=== PATIENT | female | born 1975 | race African-American/Black ===

== ENCOUNTER 2016-10-02 18:23 | Emergency (ER) | payer OTHER ==
[~2016-10-02] VITALS: Ht 167.6 cm; Wt 100.0 kg
[~2016-10-02 18:23] MED LIST: DICL50 PO
[2016-10-02 18:25] VITALS: BP 183/89; PULSE 60; RESP 20; TEMP 98.1; O2SAT 99
[2016-10-02] MEDS ORDERED: ERGO1CAP10 PO (19:36)
[2016-10-02] MEDS ORDERED: AMLO5TAB2 PO (19:36)
--- NOTE | 2016-10-02 19:48 | PD ---
HPI Chief Complaint: ENT Complaint Time Seen by Provider: 19:30 Travel History International Travel<30 days: No Contact w/Intl Traveler<30days: No Traveled to known affect area: No History of Present Illness HPI 41-year-old female presents for evaluation. She reports over the past week or 2 she has had some soreness at the base of her neck. She palpated the area was concerned that she may have a mass in the skin. The area is worse with palpation. She is also had a sore throat. It is a burning sensation in her throat with no alleviating factors. She denies any cough or congestion, fevers or chills. No recent travel. She has no other complaints at this time. [facility] Past Medical History Diminished Hearing: No ?: Not Past Surgical History Section: Yes Gynecologic Surgery: Yes (ABLATION) Social History Alcohol Use: No Tobacco Use: No Substance Use: No Allergies-Medications (Allergen,Severity, Reaction): Coded Allergies: No Known Allergies (Verified , 10/02/16) Reported Meds & Prescriptions Reported Meds & Active Scripts Active Reported Vitamin D (Ergocalciferol) 50,000 Unit Cap 50,000 Units PO Q7D Amlodipine (Amlodipine Besylate) 5 Mg Tab 5 Mg PO DAILY Review of Systems Except as stated in HPI: all other systems reviewed are Neg Physical Exam Narrative GENERAL: Well-developed well-nourished female in no acute distress SKIN: Warm and dry. There is some mild hyperpigmentation in the posterior crease of the neck. There is no erythema or induration. No palpable masses or abnormalities. HEAD: Atraumatic. Normocephalic. EYES: Pupils equal and round. No scleral icterus. No injection or drainage. ENT: No nasal bleeding or discharge. Mucous membranes pink and moist. NECK: Trachea midline. No JVD. CARDIOVASCULAR: Regular rate and rhythm. No murmur appreciated. RESPIRATORY: No accessory muscle use. Clear to auscultation. Breath sounds equal bilaterally. GASTROINTESTINAL: Abdomen soft, non-tender, nondistended. MUSCULOSKELETAL: No obvious deformities. Skin as noted above. Full range of motion of the neck. NEUROLOGICAL: Awake and alert. No obvious cranial nerve deficits. Motor grossly within normal limits. Normal speech. Data Data Last Documented VS Vital Signs Date Time Temp Pulse Resp B/P Pulse Ox O2 Delivery O2 Flow Rate FiO2 10/02/16 18:25 98.1 60 20 183/89 99 Room Air Orders Group A Rapid Strep Screen (10/02/16 19:19) Blood Glucose (10/02/16 19:54) Strep Culture (Group A) (10/02/16 19:30) MDM Medical Decision Making Medical Screen Exam Complete: Yes Emergency Medical Condition: Yes Medical Record Reviewed: Yes Differential Diagnosis Muscle strain, acanthosis nigricans, cyst, abscess, cellulitis, lipoma, pharyngitis, lymphadenitis Narrative Course Physical examination is quite benign. She does have mild hyperpigmentation in the posterior crease of the neck. She has no history of acathosis nigricans, diabetes and she denies any polyuria/polydipsia/polyphagia, weight loss. Random glucose level was 83. Rapid strep screen was performed and it was unremarkable. Physical examination is quite benign and I suspect her pain is muscular in etiology in the back of her neck. She has no meningeal signs. No palpable masses or lymph nodes. Suspect a viral pharyngitis. She is stable for discharge. Diagnosis Primary Impression: Pharyngitis Qualified Code: J02.9 - Pharyngitis, unspecified etiology Additional Instructions: Stay well hydrated well-nourished. Take Tylenol or Motrin for discomfort. Follow up closely with primary care physician. Return for any emergent medical conditions. Med/Other Pt SpecificInfo: No Change to Meds Disposition: 01 DISCHARGE HOME Condition: Stable Jose Juan Harris Oct 02, 2016 19:48
[2016-10-02 20:45] VITALS: BP 176/72; TEMP 99.1
== END 2016-10-02 20:49 | disposition home or self-care (01) ==
LOC: NEPB 18:23
DX: J02.9 Acute pharyngitis, unspecified (principal)
CPT/HCPCS: 87081; 87880; 99283

== ENCOUNTER 2016-10-08 22:28 | Observation (INO) | payer OTHER ==
[~2016-10-08] VITALS: Ht 165.1 cm; Wt 95.0 kg
[~2016-10-08 22:28] MED LIST changes: +AMLO5TAB2 PO; -DICL50 PO; +ERGO1CAP10 PO
[2016-10-08 22:29] VITALS: BP 194/91; PULSE 70; RESP 16; TEMP 98; O2SAT 98
[2016-10-09] VITALS (11 sets, daily range): BP systolic 112–140; BP diastolic 66–94; PULSE 59–81; RESP 16–20; TEMP 97.4–97.9; O2SAT 94–99
[2016-10-09] MEDS ORDERED: NITROGLYCERIN 0.4 MG SL 25 TABS/BTL SL ONE (02:00)
[2016-10-09] MEDS ORDERED: ASPIRIN 81 MG CHEW TAB PO ONE (02:00)
[2016-10-09] MEDS ORDERED: SODIUM CHLORIDE 0.9% FLUSH 5 ML FLUSH IVF PRN ×2 (02:00→04:15)
--- NOTE | 2016-10-09 02:44 | RADRPT ---
EXAM DATE/TIME: 10/09/2016 02:11 [facility] COMPARISON: No previous studies available for comparison. INDICATIONS : Chest pain. MEDICAL HISTORY : None. SURGICAL HISTORY : None. ENCOUNTER: Initial ACUITY: 1 day PAIN SCORE: 3/10 LOCATION: Bilateral chest FINDINGS: A single view of the chest demonstrates the lungs to be symmetrically aerated without evidence of mas s, infiltrate or effusion. The cardiomediastinal contours are unremarkable. Osseous structures are intact. CONCLUSION: No evidence of acute cardiopulmonary disease. Nguyễn Black MD on October 09, 2016 at 2:42 Board Certified Radiologist. This report was verified electronically.
--- NOTE | 2016-10-09 02:59 | PD ---
HPI Chief Complaint: Cardiac Complaint Time Seen by Provider: 01:50 Travel History International Travel<30 days: No Contact w/Intl Traveler<30days: No Traveled to known affect area: No History of Present Illness HPI The patient is a 41 year old female who presents to the [facility] emergency department with a history of headache along the right side of her head that she reports has been ongoing for the last 6 days. The only time that the headache goes away is when she takes pain medication or sleeps. The patient reports that the pain as a throbbing sensation. She reports that she last checked her blood pressure 2 days ago and it was normal at a local pharmacy. The patient reports that one hour before coming back to the emergency department she also began to have chest pain in the left side of her chest. She reports that this resolved on its own. She reports that the pain in her chest was a throbbing sensation. She denies having any radiation of the chest pain. She denies having any shortness of breath. She denies having any diaphoresis, nausea, vomiting, or diarrhea. The patient denies any history of hyperlipidemia, diabetes mellitus, tobacco use. The patient denies any family history of cardiac disease. She denies any lower extremity edema, calf pain, or erythema. The patient denies any recent history of fevers, cough, congestion , neck pain, shortness of breath, abdominal pain, vomiting, diarrhea, urinary symptoms, or neurologic symptoms. LMP: history of an ablation [facility] Past Medical History Narrative Medical The patient's past medical history is significant dysmenorrhea status post endometrial ablation, history of hypertension. Diminished Hearing: No Hypertension: Yes Tetanus Vaccination: Unknown Influenza Vaccination: Yes ?: Not LMP: ABLATION : 5 Para: 4 : 1 Past Surgical History Narrative Surgical The patient's past surgical history is significant for an endometrial ablation. Section: Yes Gynecologic Surgery: Yes (ABLATION) Social History Alcohol Use: No Tobacco Use: No Substance Use: No Allergies-Medications (Allergen,Severity, Reaction): Coded Allergies: No Known Allergies (Verified , 10/09/16) Reported Meds & Prescriptions Reported Meds & Active Scripts Active Reported Vitamin D (Ergocalciferol) 50,000 Unit Cap 50,000 Units PO Q7D Amlodipine (Amlodipine Besylate) 5 Mg Tab 5 Mg PO DAILY Review of Systems Except as stated in HPI: all other systems reviewed are Neg General / Constitutional: No: Fever Eyes: No: Visual changes HENT: Positive: Headaches, No: Rhinorrhea, Congestion, Neck Pain Cardiovascular: Positive: Chest Pain or Discomfort Respiratory: No: Cough, Shortness of Breath Gastrointestinal: No: Abdominal Pain Genitourinary: No: Dysuria Musculoskeletal: No: Pain Skin: No Rash Neurologic: Positive: Headache, No: Weakness, Focal Abnormalities, Change in Mentation, Slurred Speech, Sensory Disturbance Psychiatric: No: Depression Endocrine: No: Polydipsia Hematologic/Lymphatic: No: Easy Bruising Physical Exam Narrative General: The patient is a well-developed well-nourished female in no acute distress Head and Neck exam: Head is normocephalic atraumatic. No scalp tenderness on palpation. Eyes: EOMI, pupils are equal round and reactive to light. Nose: Midline septum with pink mucous membranes Mouth: Dentition unremarkable. Moist mucus membranes. Posterior oropharynx is not erythematous. No tonsillar hypertrophy. Uvula midline. Airway patent. Neck: No palpable lymphadenopathy. No nuchal rigidity. No thyromegaly. Cardiovascular: Regular rate and rhythm without murmurs, gallops, or rubs. Lungs: Clear to auscultation bilaterally. No wheezes, rhonchi, or rales. Abdomen: Soft, without tenderness to palpation in all 4 quadrants of the abdomen. No guarding, rebound, or rigidity. Normal bowel sounds are audible. Extremities: No clubbing, cyanosis, or edema. 2+ pulses in all 4 extremities. No calf tenderness on palpation. Back: No spinous process tenderness to palpation. No costovertebral angle tenderness to palpation. Neurologic Exam: Cranial nerves 2-12 were intact on exam. Strength is 5/5 in all 4 extremities. No sensory deficits noted. Skin Exam: No rash noted. Intact skin that is warm and dry. Data Data Last Documented VS Vital Signs Date Time Temp Pulse Resp B/P Pulse Ox O2 Delivery O2 Flow Rate FiO2 10/09/16 02:53 98 Room Air 10/09/16 02:50 67 16 140/94 10/08/16 22:29 98.0 Orders Electrocardiogram (10/08/16 23:11) B-Type Natriuretic Peptide (10/09/16 01:50) Ckmb (Isoenzyme) Profile (10/09/16 01:50) Complete Blood Count With Diff (10/09/16 01:50) Comprehensive Metabolic Panel (10/09/16 01:50) Magnesium (Mg) (10/09/16 01:50) Prothrombin Time / Inr (Pt) (10/09/16 01:50) Act Partial Throm Time (Ptt) (10/09/16 01:50) Troponin I (10/09/16 01:50) Lipase (10/09/16 01:50) Chest, Single Ap (10/09/16 01:50) Ecg Monitoring (10/09/16 01:50) Bilateral Bp Monitoring (10/09/16 01:50) Iv Access Insert/Monitor (10/09/16 01:50) Oximetry (10/09/16 01:50) Oxygen Administration (10/09/16 01:50) Aspirin Chew (Aspirin Chew) (10/09/16 02:00) Sodium Chloride 0.9% Flush (Ns Flush) (10/09/16 02:00) Nitroglycerin Sl (Nitrostat Sl) (10/09/16 02:00) Ed Urine Pregnancytest Poc (10/09/16 01:50) Ct Brain W/O Iv Contrast(Rout) (10/09/16 02:05) Ketorolac Inj (Toradol Inj) (10/09/16 03:30) CKMB (10/09/16 02:50) CKMB% (10/09/16 02:50) Place In Observation (10/09/16 04:10) Activity Bed Rest With Brp (10/09/16 04:10) Vital Signs (Adult) Q4H (10/09/16 04:10) Cardiac Rhythm .As Directed (10/09/16 04:10) ^ Notify Dr: Other .PRN (10/09/16 04:10) ^ Notify Dr. Parameters (10/09/16 04:10) Resp Oxygen Nasal Cannula (10/09/16 ) Diet Npo (10/09/16 Breakfast) Ckmb (Isoenzyme) Profile (10/09/16 05:50) Ckmb (Isoenzyme) Profile (10/09/16 08:50) Troponin I (10/09/16 05:50) Troponin I (10/09/16 08:50) Electrocardiogram (10/09/16 05:50) Electrocardiogram (10/09/16 08:50) ^ Obtain (10/09/16 04:10) Sodium Chloride 0.9% Flush (Ns Flush) (10/09/16 04:15) Sodium Chloride 0.9% Flush (Ns Flush) (10/09/16 09:00) Acetaminophen (Tylenol) (10/09/16 04:15) Aspirin (Aspirin) (10/09/16 09:00) Chief Cruiser / Telemetry ULICES.Q8H (10/09/16 04:10) Admit Order (Ed Use Only) (10/09/16 04:10) Labs Laboratory Tests Test 10/09/16 02:50 White Blood Count 11.0 TH/MM3 Red Blood Count 4.01 MIL/MM3 Hemoglobin 11.2 GM/DL Hematocrit 34.1 % Mean Corpuscular Volume 85.0 FL Mean Corpuscular Hemoglobin 27.9 PG Mean Corpuscular Hemoglobin 32.8 % Concent Red Cell Distribution Width 14.1 % Platelet Count 355 TH/MM3 Mean Platelet Volume 9.0 FL Neutrophils (%) (Auto) 58.9 % Lymphocytes (%) (Auto) 34.2 % Monocytes (%) (Auto) 4.9 % Eosinophils (%) (Auto) 1.1 % Basophils (%) (Auto) 0.9 % Neutrophils # (Auto) 6.5 TH/MM3 Lymphocytes # (Auto) 3.8 TH/MM3 Monocytes # (Auto) 0.5 TH/MM3 Eosinophils # (Auto) 0.1 TH/MM3 Basophils # (Auto) 0.1 TH/MM3 CBC Comment DIFF FINAL Differential Comment Prothrombin Time 10.8 SEC Prothromb Time International 1.0 RATIO Ratio Activated Partial 30.1 SEC Thromboplast Time Sodium Level 140 MEQ/L Potassium Level 3.1 MEQ/L Chloride Level 105 MEQ/L Carbon Dioxide Level 28.1 MEQ/L Anion Gap 7 MEQ/L Blood Urea Nitrogen 15 MG/DL Creatinine 1.02 MG/DL Estimat Glomerular Filtration 73 ML/MIN Rate Random Glucose 85 MG/DL Calcium Level 8.5 MG/DL Magnesium Level 1.9 MG/DL Total Bilirubin 0.2 MG/DL Aspartate Amino Transf 11 U/L (AST/SGOT) Alanine Aminotransferase 13 U/L (ALT/SGPT) Alkaline Phosphatase 88 U/L Total Creatine Kinase 139 U/L Creatine Kinase MB LESS THAN 0.5 NG/ML Troponin I LESS THAN 0.02 NG/ML B-Type Natriuretic Peptide 14 PG/ML Total Protein 7.4 GM/DL Albumin 3.4 GM/DL Lipase 126 U/L MDM Medical Decision Making Medical Screen Exam Complete: Yes Emergency Medical Condition: Yes Medical Record Reviewed: Yes Interpretation(s) Last Impressions Head CT 10/09/16204 Signed Impressions: Service Date/Time: Sunday, October 09, 2016 02:59 - CONCLUSION: Negative noncontrast head CT. Nguyễn Black MD Chest X-Ray 10/09/16149 Signed Impressions: Service Date/Time: Sunday, October 09, 2016 02:11 - CONCLUSION: No evidence of acute cardiopulmonary disease. Nguyễn Black MD Differential Diagnosis Hypertension induced headache and chest pain, versus tension headache, versus migraine headache, versus viral syndrome Narrative Course During the course of the patients emergency department visit, the patients history, examination, and differential diagnosis were reviewed with the patient. The patient had IV access obtained and blood work sent for analysis. The patient was placed on a monitor technician with oximetry and blood pressure monitoring. An EKG was done on arrival. The patient's EKG shows a sinus bradycardia, T waves that are inverted in V1, V2, V3, V4, V5, no acute ST segment elevation. The patient was provided aspirin 162 mg by mouth 1. The patient was given Toradol 15 mg IV. The patients laboratory studies were reviewed and remarkable for a white count 11, hemoglobin 11.2, platelets 355 with a normal differential. CMP is remarkable for potassium of 3.1 which was supplemented orally, creatinine 1.02, AST 11, initial set of cardiac enzymes are negative, BNP 14, lipase 126, PT PTT unremarkable. Radiology studies were reviewed and remarkable for a chest x-ray that is unremarkable. Given the patient's symptoms of chest pain with nonspecific T-wave abnormalities and a history of hypertension, the patient will be admitted to the hospital for a rule out serial cardiac enzyme protocol on the chest pain center. The patients results were discussed with the patient, including the plan of care. I explained that further testing and/ or monitoring is indicated based on the patients history, examination, and/ or laboratory findings. Therefore, I recommended admission for additional evaluation. The patient expressed understanding and was agreeable with this plan. The patient was admitted to the hospital in stable condition and sent to a bed under the care of the chest pain center. Diagnosis Primary Impression: Chest pain, rule out acute myocardial infarction Additional Impression: Headache Qualified Code: R51 - Acute nonintractable headache, unspecified headache type Admitting Information Admitting Physician Requests: Kalyani Tracey MD Oct 09, 2016 02:59
[2016-10-09 03:01] LABS: AUTOMATED NEUTROPHIL # 6.5 TH/MM3 (1.8-7.7); BASOPHIL # 0.1 TH/MM3 (0-0.2); BASOPHIL % 0.9 % (0.0-2.0); EOSINOPHIL # 0.1 TH/MM3 (0-0.4); EOSINOPHIL % 1.1 % (0.0-4.0); HEMATOCRIT 34.1 % (35.0-46.0); HEMO FLAGS DIFF FINAL; LYMPH % 34.2 % (9.0-44.0); LYMPHOCYTE # 3.8 TH/MM3 (1.0-4.8); MEAN CORPUSCULAR HEMOGLOBIN 27.9 PG (27.0-34.0); MEAN CORPUSCULAR HGB CONC 32.8 % (32.0-36.0); MONO % 4.9 % (0.0-8.0); NEUT % 58.9 % (16.0-70.0); PLATELET COUNT 355 TH/MM3 (150-450); RED BLOOD COUNT 4.01 MIL/MM3 (4.00-5.30); RED CELL DISTRIBUTION WIDTH 14.1 % (11.6-17.2)
[2016-10-09 03:16] LABS: APTT (PATIENT) 30.1 SEC (24.3-30.1); PROTHROMBIN TIME - PATIENT 10.8 SEC (9.8-11.6)
[2016-10-09 03:26] LABS: ALT (GPT) 13 U/L (10-53); ANION GAP 7 MEQ/L (5-15); AST (GOT) 11 U/L (15-37); BICARBONATE 28.1 MEQ/L (21.0-32.0); BLOOD UREA NITROGEN 15 MG/DL (7-18); CHLORIDE 105 MEQ/L (98-107); GLOMERULAR FILTRATION RATE 73 ML/MIN (>89); MAGNESIUM 1.9 MG/DL (1.5-2.5); POTASSIUM 3.1 MEQ/L (3.5-5.1); SODIUM (NA) 140 MEQ/L (136-145)
[2016-10-09 03:30] LABS: ALKALINE PHOSPHATASE 88 U/L (45-117); CREATINE KINASE 139 U/L (26-192); TOTAL BILIRUBIN ADULT 0.2 MG/DL (0.2-1.0)
[2016-10-09] MEDS ORDERED: KETOROLAC TROMETHAMINE 30 MG/ML (IVP) VIAL IV PUSH ONE (03:30)
[2016-10-09 03:44] LABS: CKMB LESS THAN 0.5 NG/ML (0.5-3.6)
--- NOTE | 2016-10-09 03:47 | RADRPT ---
EXAM DATE/TIME: 10/09/2016 02:59 [facility] COMPARISON: CT BRAIN W/O CONTRAST, January 21, 2013, 15:45. INDICATIONS : Headaches for 6 days. RADIATION DOSE: 51.24 CTDIvol (mGy) MEDICAL HISTORY : Hypertension. SURGICAL HISTORY : None. ENCOUNTER: Initial ACUITY: 4 - 6 days PAIN SCALE: 8/10 LOCATION: cranial TECHNIQUE: Multiple contiguous axial images were obtained of the head. Using automated exposure control and adj ustment of the mA and/or kV according to patient size, radiation dose was kept as low as reasonably a chievable to obtain optimal diagnostic quality images. FINDINGS: CEREBRUM: The ventricles are normal for age. No evidence of midline shift, mass lesion, hemorrhage or acute in farction. No extra-axial fluid collections are seen. POSTERIOR FOSSA: The cerebellum and brainstem are intact. The 4th ventricle is midline. The cerebellopontine angle i s unremarkable. EXTRACRANIAL: The visualized portion of the orbits is intact. SKULL: The calvaria is intact. No evidence of skull fracture. CONCLUSION: Negative noncontrast head CT. Nguyễn Black MD on October 09, 2016 at 3:45 Board Certified Radiologist. This report was verified electronically.
[2016-10-09] MEDS ORDERED: POTASSIUM CHLORIDE 20 MEQ CONTROLLED RELEASE TAB PO ONE (05:30)
[2016-10-09] MEDS: ACETAMINOPHEN 500 MG CPLT PO PRN ×3 (05:52→20:31)
[2016-10-09 06:38] LABS: CREATINE KINASE 119 U/L (26-192)
[2016-10-09 06:50] LABS: CKMB LESS THAN 0.5 NG/ML (0.5-3.6)
[2016-10-09] MEDS: ASPIRIN 325 MG TAB PO SCH (09:18)
[2016-10-09] MEDS: SODIUM CHLORIDE 0.9% FLUSH 5 ML FLUSH IVF SCH ×2 (09:18→20:30)
[2016-10-09] MEDS: amLODIPine BESYLATE 5 MG TAB PO SCH (09:51)
[2016-10-09 10:13] LABS: CREATINE KINASE 115 U/L (26-192)
[2016-10-09 10:25] LABS: CKMB LESS THAN 0.5 NG/ML (0.5-3.6)
--- NOTE | 2016-10-09 10:41 | MH ---
cc: OMID ZEE MD DATE OF ADMISSION: 10/09/2016 DATE OF : 1975 CHIEF COMPLAINT Headache and chest pain. HISTORY OF PRESENT ILLNESS This is a 41-year-old female who presents to the ED via private vehicle. The patient states that she was coming to the emergency department for a constant headache that had been there for 6 days. It was in the back of her head. She states she has . She had no photophobia or phonophobia. No weakness in the extremities. No head injury. No seizure activity. She denies fevers or chills. She states while en route to the hospital to evaluate her headache, she developed a left-sided chest discomfort. She states it was there constantly for an hour. She describes it as a pressure and it was a 5 out of 10. She had no associated shortness of breath, nausea or diaphoresis with the symptoms. She states it remained until getting IV medicine in the ER. I reviewed her records, she was given IV Toradol. She states that helped a lot. She denies history of CAD. PAST MEDICAL HISTORY 1. Hypertension. 2. Migraines. Denies hyperlipidemia, diabetes and CAD. FAMILY HISTORY Denies family history of CAD. SOCIAL HISTORY She is a nonsmoker. Denies alcohol or illicit drugs. She is . She has four children two of which live at home. PAST SURGICAL HISTORY and uterine ablation. ALLERGIES NO KNOWN DRUG ALLERGIES. MEDICATIONS 1. Amlodipine 5 mg daily. 2. Vitamin D. REVIEW OF SYSTEMS GENERAL: Denies fevers or chills. Denies recent illnesses. HEENT: Denies headache in the back of her head. Denies earache, sore throat or difficulty swallowing. CARDIOVASCULAR: Describes the discomfort as mentioned above. Denies diaphoresis. Denies sensation of heart beating rapidly or irregularly. Denies syncope. RESPIRATORY: Denies shortness of breath or inspirational chest discomfort. Denies coughing, wheezing or hemoptysis. GI: Denies nausea, vomiting, diarrhea, abdominal pain or blood in stool. MUSCULOSKELETAL: Denies joint pain or edema. Denies calf pain or edema. NEUROVASCULAR: Denies headache or dizziness. ENDOCRINE: Denies polyuria, polydipsia. HEMATOLOGIC: Denies easy bruising. SKIN: Denies rash or itching. PHYSICAL EXAMINATION VITAL SIGNS: In the emergency department initially included a blood pressure 194/91, heart rate 70, respirations 16, pulse oximetry 98% on room air and she was afebrile. Most recent vital signs include a blood pressure 112/68, heart rate 81, respiration 19, pulse oximetry 97% on room air. GENERAL: The patient is seen in the examination room in no apparent distress. She is very pleasant. She speaks in clear and complete sentences. HEENT: Head is atraumatic and normocephalic. NECK: Neck is supple without lymphadenopathy and trachea is midline. No JVD or carotid bruits. CARDIOVASCULAR: Regular rate and rhythm without murmur, gallop or rub. RESPIRATORY: Lungs are clear to auscultation bilaterally. No wheezing, rales or rhonchi. No use of accessory muscles. There is a rather easily reproducible discomfort just left of the sternum. This is the discomfort she was having prior to getting the Toradol injection in the ER. GI: Abdomen is nontender, nondistended. Bowel sounds are normal. No guarding or rebound. No obvious pulsatile mass or bruit. No CVA tenderness. Strong femoral pulses bilaterally. MUSCULOSKELETAL: Patient moving upper and lower extremities freely. No joint tenderness or edema. No calf tenderness or edema, no Homans' sign. Strong pulses in upper and lower extremities. NEUROVASCULAR: The patient is alert and oriented. Cranial nerves II-XII grossly intact. No focal deficits and speech is clear. SKIN: No rashes. Turgor is normal. LABORATORY DATA CBC is unremarkable. Coagulation studies are unremarkable. Complete metabolic panel has a potassium decreased at 3.1, otherwise essentially unremarkable. First two sets of cardiac enzymes are normal. BNP is normal at 14. Lipase normal 26. IMAGING STUDIES Single view chest x-ray read by radiologist as no evidence of acute cardiopulmonary disease. A CT brain obtained through the ER and read by the radiologist as negative noncontrast head CT. EKGs Have sinus bradycardia with diffuse nonspecific inferior T-wave changes. There are also some lateral ST-T changes nonspecific. ASSESSMENT AND PLAN 1. Chest pain: The patient's discomfort is reproducible when palpating the chest wall. She will have serial cardiac enzymes and EKGs for ruling out purposes. She will be seen by Dr. Omid Zee of cardiology in the chest pain center. Her discomfort has improved after getting IV Toradol. stress test if so and if normal she will be discharged home with instruction to follow with local physician. 2. Cephalgia: Followup with her primary care physician. Her headache has improved. 3. Hypertension: Continue amlodipine. The patient is stable at this time. She is agreeable to this plan. Dictated by: Freeman Peterson PA-C MD SARINA Betancourt/JUJU /9:19 AM /10:38 AM
--- NOTE | 2016-10-09 15:47 | RADRPT ---
EXAM DATE/TIME: 10/09/2016 12:36 [facility] COMPARISON: No previous studies available for comparison. INDICATIONS : Left chest pain and headache. Angina DOSE: 25.4 mCi Tc99m Myoview at stress 8.6 mCi Tc99m Myoview at rest REST HEART RATE: 98 BPM TARGET HEART RATE: 153 BPM MAX HEART RATE: 158 BPM REST BLOOD PRESSURE: 130/80 mmHg MAX BLOOD PRESSURE: 150/80 mmHg EJECTION FRACTION: 59% MEDICAL HISTORY : Hypertension. SURGICAL HISTORY : section. ENCOUNTER: Initial ACUITY: 1 day PAIN SCALE: 3/10 LOCATION: Left chest TECHNIQUE: The patient underwent upright treadmill exercise in the chest pain center. Continuous ECG tracing wa s monitored during stress. Gated SPECT imaging was performed after stress, and conventional SPECT im aging was performed at rest. The examination was performed on a SPECT/CT scanner, both attenuation-c orrected and non-corrected datasets were reviewed. FINDINGS: DISTRIBUTION: The maximum perfused segment at stress is in the inferior wall. PERFUSION STUDY: Stress induced reduced perfusion is identified in the anterior wall and septum. There is significant reperfusion of these areas at rest. A fixed perfusion abnormalities identified in the lateral apical region of the left ventricle. GATED STUDY: There is intact wall motion and thickening without hypokinetic or dyskinetic segments. CONCLUSION: Stress induced reversible perfusion abnormalities involving the anterior wall and septum. Small fixed perfusion abnormalities in the lateral apical region. Well-preserved ejection fraction and wall motion. RISK CATEGORY: Intermediate (1-3% Annual Mortality Rate) Ramy Reynoso MD on October 09, 2016 at 15:43 Board Certified Radiologist. This report was verified electronically.
[2016-10-09] MEDS ORDERED: ALPRAZolam 0.25 MG TAB PO PRN (17:00)
[2016-10-10 05:57] VITALS: BP 103/54; PULSE 66; RESP 20; TEMP 97.8; O2SAT 94
[2016-10-10 06:06] VITALS: PULSE 60
[2016-10-10 08:00] VITALS: BP 109/68; PULSE 66; PULSE 73; RESP 18; TEMP 97.6; O2SAT 97
[2016-10-10 08:05] LABS: HDL CHOLESTEROL 55.5 MG/DL (40.0-60.0)
[2016-10-10] MEDS: ASPIRIN 325 MG TAB PO SCH (09:16)
[2016-10-10] MEDS: amLODIPine BESYLATE 5 MG TAB PO SCH (09:16)
[2016-10-10] MEDS: SODIUM CHLORIDE 0.9% FLUSH 5 ML FLUSH IVF SCH (09:17)
[2016-10-10] MEDS ORDERED: KETOROLAC TROMETHAMINE 30 MG/ML (IVP) VIAL IV PUSH ONE (10:00)
[2016-10-10 11:48] VITALS: BP 119/70; PULSE 64; RESP 18; TEMP 97.2; O2SAT 97
[2016-10-10 12:00] VITALS: PULSE 62
[2016-10-10] MEDS ORDERED: HEPARIN-NS/PF INJ 500 ML ONE (12:23)
[2016-10-10] MEDS ORDERED: MIDAZOLAM HCL 2 MG/2 ML VIAL ONE (12:23)
[2016-10-10] MEDS ORDERED: SODIUM CHLORIDE 0.9% FLUSH 5 ML FLUSH IVF PRN (13:00)
[2016-10-10] MEDS ORDERED: ATROPINE SULFATE 1 MG/ML VIAL IV PRN (13:00)
[2016-10-10] MEDS ORDERED: METOCLOPRAMIDE HCL 10 MG/2 ML VIAL IV PRN (13:00)
[2016-10-10] MEDS ORDERED: MISC INFORMATION XX ONE (13:00)
[2016-10-10] MEDS ORDERED: SODIUM CHLOR 0.9% 250 ML INJ 250 ML IV PRN (13:00)
[2016-10-10] MEDS ORDERED: ONDANSETRON HCL 4 MG/2 ML VIAL IV PRN (13:00)
--- NOTE | 2016-10-10 13:15 | MA ---
cc: OMID WILLAMS MD DATE 10/10/2016 PROCEDURAL STATEMENT The patient was prepped and draped in the usual fashion. A 6 sheath was inserted percutaneously into the right femoral artery. Coronary angiography was done with Bailee preformed catheters. RESULTS Aortic pressure was 116/70. LEFT VENTRICULOGRAPHY Not done. CORONARY ARTERIOGRAPHY The left main coronary artery was normal. The left anterior descending artery was normal throughout its course. The left circumflex artery and the obtuse marginal were normal throughout their course. The right coronary artery was anatomically dominant and normal throughout its course. CONCLUSIONS Normal coronary arteries. It is felt that her nuclear stress test was falsely positive and chest pain is not secondary to coronary artery disease. MD STEFFI BetancourtW/CHIOL /1:05 PM /1:13 PM
[2016-10-10] MEDS ORDERED: IOHEXOL 350 MG/ML 50 ML BTL (for Cath Lab) OTHER ONE (14:01)
--- NOTE | 2016-10-10 15:47 | EKG ---
Date Performed: 10/09/2016 Time Performed: 09:41:05 PTAGE: 41 years EKG: SINUS BRADYCARDIA NONSPECIFIC T-WAVE ABNORMALITY BORDERLINE ECG PREVIOUS TRACING : 10/09/2016 06.03 Since previous tracing, no significant change noted DOCTOR: Ned Zee Interpretating Date/Time 10/10/2016 15:45:26
--- NOTE | 2016-10-10 15:48 | EKG ---
Date Performed: 10/09/2016 Time Performed: 06:03:27 PTAGE: 41 years EKG: SINUS BRADYCARDIA MODERATE T-WAVE ABNORMALITY, CONSIDER ANTEROLATERAL ISCHEMIA ABNORMAL ECG PREVIOUS TRACING : 11/09/2011 22.16 Since previous tracing, no significant change noted DOCTOR: Ned Zee Interpretating Date/Time 10/10/2016 15:46:09
--- NOTE | 2016-10-10 15:50 | EKG ---
Date Performed: 10/08/2016 Time Performed: 23:16:30 PTAGE: 41 years EKG: SINUS BRADYCARDIA MODERATE T-WAVE ABNORMALITY, CONSIDER ANTERIOR ISCHEMIA ABNORMAL ECG NO PREVIOUS TRACING DOCTOR: Ned Zee Interpretating Date/Time 10/10/2016 15:48:22
--- NOTE | 2016-10-10 16:08 | TR ---
Date Performed: 10/09/2016 Time Performed: 14:25:24 DOCTOR: Ned Zee DRUG LIST: CLINICAL HISTORY: REASON FOR TEST: Chest pain REASON FOR ENDING: OBSERVATION: CONCLUSION: BALDO PROTOCOL NUCLEAR ETT. NO CP OR SOB.Maximum WO=049 % Max HR Achieved=86.0% Maxi mum WK=988/80 Total Exercise Time=6:00 COMMENTS: Patient exercised using the Baldo protocol. No electrocardiographic changes were seen to suggest ischemia. Hemodynamic response to exercise was normal. No significant arrhythmia was prese nt.
[2016-10-10 19:15] VITALS: O2SAT 96
[2016-10-10] MEDS ORDERED: SODIUM CHLORIDE 0.9% FLUSH 5 ML FLUSH IVF SCH (21:00)
== END 2016-10-10 14:15 | disposition home or self-care (01) ==
LOC: NEPC 22:28 → NEDA 10-09 04:13 → NEPGCP 10-09 11:43
PROVIDERS: ADMIT Internal Medicine Cardiovascular Disease; ATTEND Internal Medicine Cardiovascular Disease
DX: R07.9 Chest pain, unspecified (principal); G43.909 Migraine, unspecified, not intractable, without status migrainosus; I10 Essential (primary) hypertension
CPT/HCPCS: 70450; 71010; 78452; 80053; 80061; 82550; 82552; 83690; 83735; 83880; 84484; 84703; 85025; 85610; 85730; 93005; 93017; 93454; 96374; 99285; A9502; C1760; C1769; C1893; G0269; G0378; J1644; J1885; J2250; J3010; Q9967

== ENCOUNTER 2017-03-02 23:25 | Emergency (ER) | payer OTHER ==
[~2017-03-02] VITALS: Ht 165.1 cm; Wt 100.0 kg
[2017-03-02 23:27] VITALS: BP 180/99; PULSE 83; RESP 16; TEMP 98.6; O2SAT 100
[2017-03-03 00:40] VITALS: BP 168/100
[2017-03-03] MEDS ORDERED: DEXAMETHASONE SOD PHOS 20 MG/5 ML VIAL IM ONE (01:15)
[2017-03-03] MEDS ORDERED: ORPHENADRINE INJ 60 MG/2 ML AMP IM ONE (01:15)
[2017-03-03] MEDS ORDERED: KETOROLAC TROMETHAMINE 60 MG/2 ML (IM) VIAL IM ONE (01:15)
--- NOTE | 2017-03-03 01:29 | PD ---
HPI Chief Complaint: Back/ Neck Pain or Injury Time Seen by Provider: 01:00 Travel History International Travel<30 days: No Contact w/Intl Traveler<30days: No Traveled to known affect area: No History of Present Illness HPI Patient is a 41-year-old female presenting to emergency for evaluation of 3 days of right upper back pain. Patient states she was vacuuming when she felt her muscle pull. She also reports pain in her right heel unrelated to the back pain. She stated when she takes off her shoe is painful to walk. She reports the pain in her back as an 8 out of 10 and feeling. She denies any shortness of breath, chest pain, abdominal pain. She has been taking ibuprofen with no significant relief of symptoms. She reports that the pain in her hell has been ongoing for several days as well. [facility] Past Medical History Congestive Heart Failure: No Diabetes: No Diminished Hearing: No Hypertension: Yes ?: Not : 5 Para: 4 : 1 Past Surgical History Section: Yes Gynecologic Surgery: Yes (ABLATION) Social History Alcohol Use: No Tobacco Use: No Substance Use: No Allergies-Medications (Allergen,Severity, Reaction): Coded Allergies: No Known Allergies (Verified , 03/03/17) Reported Meds & Prescriptions Reported Meds & Active Scripts Active Prednisone 50 Mg Tab 50 Mg PO DAILY Flexeril (Cyclobenzaprine HCl) 10 Mg Tab 10 Mg PO TID PRN 10 Days Ibuprofen 800 Mg Tab 800 Mg PO Q6HR PRN Review of Systems Except as stated in HPI: all other systems reviewed are Neg Musculoskeletal: Positive: Myalgias, Cramping, Pain Physical Exam Narrative GENERAL: Well-nourished, well-developed patient. SKIN: Focused skin assessment warm/dry. HEAD: Normocephalic. EYES: No scleral icterus. No injection or drainage. NECK: Supple, trachea midline. No JVD or lymphadenopathy. CARDIOVASCULAR: Regular rate and rhythm without murmurs, gallops, or rubs. RESPIRATORY: Breath sounds equal bilaterally. No accessory muscle use. GASTROINTESTINAL: Abdomen soft, non-tender, nondistended. MUSCULOSKELETAL: No cyanosis, or edema. Tenderness to palpation in right upper back just medial to right scapula. No obvious deformities noted in right heel, nontender to palpation, no erythema noted. Positive pedal pulses, brisk less than 3 second capillary refill. Patient is neurovascularly intact. BACK: Nontender without obvious deformity. No CVA tenderness. Data Data Last Documented VS Vital Signs Date Time Temp Pulse Resp B/P Pulse Ox O2 Delivery O2 Flow Rate FiO2 03/03/17 00:40 168/100 03/02/17 23:27 98.6 83 16 100 Orders Foot, Heel Only ([id number]) (03/03/17 ) Ketorolac Inj (Toradol Inj) (03/03/17 01:15) Orphenadrine Inj (Norflex Inj) (03/03/17 01:15) Dexamethasone Inj (Decadron Inj) (03/03/17 01:15) MDM Medical Decision Making Medical Screen Exam Complete: Yes Emergency Medical Condition: Yes Interpretation(s) Vital Signs Date Time Temp Pulse Resp B/P Pulse Ox O2 Delivery O2 Flow Rate FiO2 03/03/17 00:40 168/100 03/02/17 23:27 98.6 83 16 180/99 100 Differential Diagnosis Strain versus spasm versus discogenic pain versus heel spur versus plantar fasciitis versus other Narrative Course Patient is a 41-year-old female presenting with right upper back pain and right heel pain. Imaging ordered on the right heel, medications ordered for pain relief her right upper back pain. Physical examination appears most consistent with muscle spasm, pinched nerve in her back. Patient is a history of hypertension, BP was elevated on arrival. BP could be elevated secondary to pain as well. Imaging of the right heel is negative for acute bony abnormality. Patient is encouraged to do any range of motion exercises, apply warm moist heat to affected area, take medications as directed, avoid exacerbating activities. She is encouraged follow-up with a primary care provider. She is also encouraged to return to emergency department should she experience any new or worsening symptoms. Patient verbalizes understanding of these instructions. Patient stable for discharge. Diagnosis Primary Impression: Muscle spasm Additional Impression: Heel pain Qualified Code: M79.671 - Pain of right heel Referrals: [facility] Primary Care Physician Patient Instructions: General Instructions, Muscle Spasm (ED) Additional Instructions: Follow-up with your primary doctor Apply warm moist heat to the affected area, continue range of motion exercises, avoid exacerbating activities Take medications as directed Your blood pressure was elevated in the emergency department, follow-up with primary doctor for ongoing evaluation and management. Return to emergency department for any new or worsening symptoms Med/Other Pt SpecificInfo: Prescription(s) given Scripts Prednisone 50 Mg Tab50 Mg PO DAILY #3 TAB Ref 0 Prov:Carmelita Buchanan 03/03/17 Cyclobenzaprine (Flexeril)10 Mg Tab10 Mg PO TID PRN (MUSCLE SPASM) 10 Days Ref 0 Prov:Carmelita Buchanan 03/03/17 Ibuprofen 800 Mg Esi780 Mg PO Q6HR PRN (PAIN) #40 TAB Ref 0 Prov:Carmelita Buchanan 03/03/17 Disposition: 01 DISCHARGE HOME Condition: Stable Carmelita Buchanan Mar 03, 2017 01:29
--- NOTE | 2017-03-03 01:36 | RADRPT ---
EXAM DATE/TIME: 03/03/2017 01:02 [facility] COMPARISON: No previous studies available for comparison. INDICATIONS : Pt says stepped down wrong and has pain to right heel. Pt states unable to bear weight. MEDICAL HISTORY : None. SURGICAL HISTORY : None. ENCOUNTER: Initial ACUITY: 1 day PAIN SCORE: 6/10 LOCATION: Right Foot FINDINGS: Two view examination of the right heel demonstrates the trabecula to be intact with no evidence of fr acture. There is a normal calcaneal angle. The soft tissues are of normal thickness. CONCLUSION: No fracture seen. Shay Aquino MD on March 03, 2017 at 1:34 Board Certified Radiologist. This report was verified electronically.
[2017-03-03] MEDS ORDERED: CYCL1TAB29 PO (02:03)
[2017-03-03] MEDS ORDERED: PRED50 PO (02:03)
[2017-03-03] MEDS ORDERED: IBUP800T23 PO (02:03)
== END 2017-03-03 03:57 | disposition home or self-care (01) ==
LOC: NEPD 23:25
DX: M62.838 Other muscle spasm (principal); M79.671 Pain in right foot; I10 Essential (primary) hypertension
CPT/HCPCS: 73650; 96372; 99284; J1100; J1885; J2360

== ENCOUNTER 2018-01-05 19:44 | Emergency (ER) | payer SELFPAY ==
[~2018-01-05] VITALS: Ht 166.4 cm; Wt 96.8 kg
[~2018-01-05 19:44] MED LIST changes: -AMLO5TAB2 PO; +CYCL10TA PO; -ERGO1CAP10 PO; +IBUP1TAB7 PO; +PRED50 PO
[2018-01-05 19:46] VITALS: BP 183/88; PULSE 65; RESP 18; TEMP 98.8; O2SAT 98
--- NOTE | 2018-01-05 19:55 | PD ---
HPI Chief Complaint: Injury Time Seen by Provider: 19:53 Travel History International Travel<30 days: No Contact w/Intl Traveler<30days: No Traveled to known affect area: No History of Present Illness HPI 42-year-old female presents for evaluation of left hand pain. Prior to arrival the patient reports that her son was throwing a basketball to her and the basketball hit her in her left hand awkwardly. She now has pain in her left hand, primarily at the base of the left thumb, aching, worse with movement. Denies any numbness or tingling. Denies any other injuries and she has no other complaints. PFSH Past Medical History Congestive Heart Failure: No Diabetes: No Diminished Hearing: No Hypertension: Yes ?: Not : 5 Para: 4 : 1 Past Surgical History Section: Yes Gynecologic Surgery: Yes (ABLATION) Social History Alcohol Use: No Tobacco Use: No Substance Use: No Allergies-Medications (Allergen,Severity, Reaction): Coded Allergies: No Known Allergies (Verified Adverse Reaction, Unknown, 01/05/18) Reported Meds & Prescriptions Reported Meds & Active Scripts Active Review of Systems Musculoskeletal: Positive: Pain, No: Limited ROM Skin: Positive Other (Denies open wounds) Neurologic: No: Paresthesia Physical Exam Narrative GENERAL: Well-developed well-nourished female no acute distress SKIN: Warm and dry. CARDIOVASCULAR: Regular rate and rhythm. No murmur appreciated. RESPIRATORY: No accessory muscle use. Clear to auscultation. Breath sounds equal bilaterally. Extremities: Tender to palpation base of left thumb and first metacarpal. The patient maintains full range of motion of the left hand. There is no obvious deformity. No bruising or soft tissue swelling. Normal pinching strength between the first and second fingers. Capillary refill less than 2 seconds all digits left hand. 2+ radial pulse. Data Data Last Documented VS Vital Signs Date Time Temp Pulse Resp B/P (MAP) Pulse Ox O2 Delivery O2 Flow Rate FiO2 01/05/18 19:46 98.8 65 18 183/88 (119) 98 Orders Orders Hand, Complete ([id number]) (01/05/18 ) Splint Or Brace Apply/Monitor (01/05/18 20:45) Ed Discharge Order (01/05/18 20:45) MDM Medical Decision Making Medical Screen Exam Complete: Yes Emergency Medical Condition: Yes Medical Record Reviewed: Yes Differential Diagnosis Finger strain, sprain, fracture, ulnar collateral ligament rupture Narrative Course X-ray imaging of the left hand will be obtained. X-ray reveals CONCLUSION: 1. Small avulsion fracture at the base of the first metacarpal. The patient was given a copy of her x-ray report. She will be placed in a thumb spica splint. She is stable for discharge. Diagnosis Primary Impression: Fracture of metacarpal, first, left hand Referrals: Bo Mixon MD Additional Instructions: Ice the area several times a day 15 minutes at a time. Do not remove the splint. Rest. Take Tylenol Motrin for pain. Follow-up with a hand specialist such as Dr. Mixon in the next week. Return for any emergent medical conditions. Med/Other Pt SpecificInfo: No Change to Meds, Orthopedic Instructions Disposition: 01 DISCHARGE HOME Condition: Stable Jose Juan Harris Jan 05, 2018 19:55
--- NOTE | 2018-01-05 20:43 | RADRPT ---
EXAM DATE/TIME: 01/05/2018 20:00 [facility] COMPARISON: No previous studies available for comparison. INDICATIONS : Left hand pain after jamming finger catching a basketball. MEDICAL HISTORY : None. SURGICAL HISTORY : None. ENCOUNTER: Initial ACUITY: 1 day PAIN SCORE: 8/10 LOCATION: Left proximal hand, 1sr digit. FINDINGS: There is a small avulsion fracture at the base of the proximal first metacarpal. No dislocation. No o ther fractures are seen. CONCLUSION: 1. Small avulsion fracture at the base of the first metacarpal. Abhi Gannon MD on January 05, 2018 at 20:39 Board Certified Radiologist. This report was verified electronically.
== END 2018-01-05 21:24 | disposition home or self-care (01) ==
LOC: NEPK 19:44
DX: S62.232A Other displaced fracture of base of first metacarpal bone, left hand, initial encounter for closed fracture (principal); W21.05XA Struck by basketball, initial encounter; Y93.67 Activity, basketball
CPT/HCPCS: 73130; 99283; L3808

== ENCOUNTER 2018-02-10 18:01 | Emergency (ER) | payer OTHER ==
[2018-02-10 18:06] VITALS: BP 185/89; PULSE 67; RESP 16; TEMP 98.3; O2SAT 99
--- NOTE | 2018-02-10 18:15 | PD ---
HPI Chief Complaint: Complaint Time Seen by Provider: 18:14 Travel History International Travel<30 days: No Contact w/Intl Traveler<30days: No Traveled to known affect area: No History of Present Illness HPI 42-year-old female presents emergency department with 3 day history of urinary urgency, frequency, and dysuria. She has no history of vaginal discharge. No flank pain or fever. Patient does have cramping when she does urinate. Pain is 5 out of 10 at worst. She denies . She has no known drug allergies. PFSH Past Medical History Congestive Heart Failure: No Diabetes: No Diminished Hearing: No Hypertension: Yes : 5 Para: 4 : 1 Past Surgical History Section: Yes Gynecologic Surgery: Yes Social History Alcohol Use: No Tobacco Use: No Substance Use: No Allergies-Medications (Allergen,Severity, Reaction): Coded Allergies: No Known Allergies (Verified Adverse Reaction, Unknown, 01/05/18) Reported Meds & Prescriptions Reported Meds & Active Scripts Active Review of Systems Except as stated in HPI: all other systems reviewed are Neg General / Constitutional: No: Fever Eyes: No: Visual changes HENT: No: Headaches Cardiovascular: No: Chest Pain or Discomfort Respiratory: No: Shortness of Breath Gastrointestinal: No: Abdominal Pain Genitourinary: Positive: Urgency, Frequency, Dysuria, No: Pelvic Pain, Flank Pain, Discharge, Vaginal Bleeding Musculoskeletal: No: Pain Skin: No Rash Neurologic: No: Weakness Psychiatric: No: Depression Endocrine: No: Polydipsia Hematologic/Lymphatic: No: Easy Bruising Physical Exam Narrative GENERAL: Patient appears in no acute distress. SKIN: Warm and dry. Normal color. Normal turgor. HEAD: Atraumatic. Normocephalic. EYES: Pupils equal and round. No scleral icterus. No injection or drainage. ENT: No nasal bleeding or discharge. Mucous membranes pink and moist. Pharynx is clear. Airway is patent. NECK: Trachea midline. Supple and nontender. CARDIOVASCULAR: Regular rate and rhythm. RESPIRATORY: No accessory muscle use. Clear to auscultation. Breath sounds equal bilaterally. GASTROINTESTINAL: Abdomen soft, non-tender, nondistended. Hepatic and splenic margins not palpable. No CVA tenderness. MUSCULOSKELETAL: Extremities without clubbing, cyanosis, or edema. No obvious deformities. NEUROLOGICAL: Awake and alert. No obvious cranial nerve deficits. Motor grossly within normal limits. Five out of 5 muscle strength in the arms and legs. Normal speech. PSYCHIATRIC: Appropriate mood and affect; insight and judgment normal. Data Data Last Documented VS Vital Signs Date Time Temp Pulse Resp B/P (MAP) Pulse Ox O2 Delivery O2 Flow Rate FiO2 02/10/18 18:06 98.3 67 16 185/89 (121) 99 Orders Orders Urinalysis - C+S If Indicated (02/10/18 18:13) Ed Urine Pregnancytest Poc (02/10/18 18:13) Urine Culture (02/10/18 18:45) Labs Laboratory Tests Test 02/10/18 18:45 Urine Color YELLOW Urine Turbidity HAZY Urine pH 6.0 Urine Specific [place] 1.024 Urine Protein TRACE mg/dL Urine Glucose (UA) NEG mg/dL Urine Ketones NEG mg/dL Urine Occult Blood SMALL Urine Nitrite NEG Urine Bilirubin NEG Urine Urobilinogen LESS THAN 2.0 MG/DL Urine Leukocyte Esterase LARGE Urine RBC 11 /hpf Urine WBC 33 /hpf Urine Squamous Epithelial Cells 5 /hpf Urine Bacteria MANY /hpf Urine Mucus FEW /lpf Microscopic Urinalysis Comment CULTURE INDICATED MDM Medical Decision Making Medical Screen Exam Complete: Yes Emergency Medical Condition: Yes Differential Diagnosis Dysuria. Urinary urgency. Urinary tract infection. Narrative Course Patient is medically stable at time of exam. Urinalysis and urine are ordered. Patient is given first dose of Keflex 500 mg p.o. now. Patient will be continued on Keflex 500 mg 4 times daily 7 days. Recommend follow-up with primary care physician. Diagnosis Primary Impression: Urinary tract infection Qualified Codes: N30.00 - Acute cystitis without hematuria Patient Instructions: General Instructions Additional Instructions: Patient is given first dose of Keflex 500 mg p.o. now. Patient will be continued on Keflex 500 mg 4 times daily 7 days. Recommend follow-up with primary care physician. Med/Other Pt SpecificInfo: Prescription(s) given Scripts Cephalexin (Keflex) 500 Mg Cap 500 MG PO Q6H for Infection for 7 Days, #28 CAP 0 Refills Prov: Jad Colon MD 02/10/18 Disposition: 01 DISCHARGE HOME Condition: Stable Nito Wasserman Feb 10, 2018 18:15
[2018-02-10 19:11] LABS: BACTERIA, URINE MANY /hpf; BILIRUBIN, URINE NEG (NEG); BLOOD, URINE SMALL (NEG); GLUCOSE,URINE NEG (NEG); KETONE, URINE NEG (NEG); MUCUS URINE FEW /lpf (OCC); NITRITE,URINE NEG (NEG); SQUAMOUS EPITHELIAL CELL URINE 5 /hpf (0-5); URINE COLOR YELLOW (YELLW/STRAW); URINE LEUKOCYTE ESTERASE LARGE (NEG)
[2018-02-10] MEDS ORDERED: CEPH-460 PO (19:22)
== END 2018-02-10 19:39 | disposition home or self-care (01) ==
LOC: NEPK 18:01
DX: N30.00 Acute cystitis without hematuria (principal); B96.20 Unspecified Escherichia coli [E. coli] as the cause of diseases classified elsewhere; I10 Essential (primary) hypertension
CPT/HCPCS: 81001; 84703; 87077; 87086; 87186; 99283